=== PATIENT | female | born 1965 | race Caucasian/White ===

== ENCOUNTER 2022-09-12 12:41 | Observation (INO) | payer OTHER, SELFPAY ==
--- NOTE | ~2022-09-12 | CT_ITS ---
EXAMINATION: CT ANGIOGRAM HEAD CT ANGIOGRAM NECK CLINICAL INFORMATION: Blurred vision. COMPARISON: None available. TECHNIQUE: Initial noncontrast natural resource specialist imaging of the head and neck was performed. Noncontrast head CT was also performed. Test bolus sequences followed by intravenous administration 70 mL of Omnipaque 350. Helical imaging was performed in the axial plane from the aortic arch to the skull vertex. Delayed postcontrast imaging of the head was also performed. The data was processed at the pulmonary function technologist's workstation for generation of MIP sequences. Angled MIPs and volume rendered reformatted images were also generated at an offline 3D workstation. Stenoses are assessed in accordance with NASCET criteria unless otherwise indicated. This CT examination was performed using dose optimization techniques as appropriate, variously including the following: *Automated exposure control. *Adjustment of mA and/or kV according to patient size (this includes techniques or standardized protocols for targeted exams where dose is matched to indication/reason for exam; i.e. extremities or head). *Use of iterative reconstruction technique. DLP: 2253 mGy-cm FINDINGS: CT Head: There is no evidence of acute intracranial hemorrhage or edematous territorial infarction. There is no abnormal attenuation within the brain parenchyma. Park-white matter differentiation is preserved. The ventricles are normal in size and configuration. No evidence for obstructive hydrocephalus. No abnormal mass effect or midline shift. No extra-axial fluid collections. No pathologic intra-axial enhancement or regional oligemia. No acute soft tissue or osseous abnormalities. Mild mucosal thickening of the paranasal sinuses. The mastoid air cells and middle ear cavities are clear. No demonstrated abnormalities of the orbits. CT Neck: Mild leftward nasal septal deviation. There is a 2 cm heterogeneous lesion in the anterior aspect of the right thyroid lobe. The remaining Cervical soft tissues are within normal limits. Straightening of the normal cervical lordosis. Moderate degenerative disc disease at C5-C6 with disc/osteophyte complex formation. CT Upper Chest: Moderate underlying centrilobular emphysema. The visualized lung apices and upper mediastinum are within normal limits. Neck CTA: Aortic Arch: Normal contour and caliber with mild calcific atherosclerotic disease. Classic 3 vessel branching pattern of the aortic arch. Great Vessel Origins: No significant stenosis of the branch origins. Right Common Carotid Artery: No focal stenosis or occlusion. Cervical Right Internal Carotid Artery: Normal opacification without focal stenosis or occlusion. Left Common Carotid Artery: No focal stenosis or occlusion. Cervical Left Internal Carotid Artery: Normal opacification without focal stenosis or occlusion. Cervical Right Vertebral Artery: Co-dominant. No focal stenosis or occlusion. Cervical Left Vertebral Artery: Co-dominant. No focal stenosis or occlusion. Brain CTA: Intracranial Internal Carotid Arteries: No focal stenosis or occlusion. Right Anterior Cerebral Artery: Normal A1 segment. Normal opacification of the distal DAVIDA segments. Left Anterior Cerebral Artery: Normal A1 segment. Normal opacification of the distal DAVIDA segments. Anterior Communicating Artery: Normal. Right Middle Cerebral Artery: Normal M1 segment of the MCA without focal stenosis or occlusion. Normal arborization of the distal segments. Left Middle Cerebral Artery: Normal M1 segment of the MCA without focal stenosis or occlusion. Normal arborization of the distal segments. Right Vertebral Artery: Normal V4 segment. Normal opacification of the proximal segments of the posterior inferior cerebellar artery. Left Vertebral Artery: Normal V4 segment. The posterior inferior cerebellar artery is not well opacified; however, there is no CT evidence of acute occlusion. Basilar Artery: Normal without focal stenosis or occlusion. Normal appearance of the proximal superior cerebellar arteries. Right Posterior Cerebral Artery: Normal P1 segment. Normal opacification of the distal SUPERVISOR GLUING segments. Left Posterior Cerebral Artery: Normal P1 segment. Normal opacification of the distal SUPERVISOR GLUING segments. Normal opacification of the superior sagittal, straight, transverse, and sigmoid sinuses. CT/CT angio head neck IMPRESSION: 1. No evidence of acute intracranial hemorrhage or edematous territorial infarction. 2. CTA of the head and neck without proximal occlusion or flow-limiting stenosis. 3. There is a 2 cm heterogeneous lesion in right thyroid lobe. Recommend further characterization with thyroid ultrasound. 4. Emphysema.
--- NOTE | ~2022-09-12 | XR_ITS ---
EXAMINATION: XR CHEST CLINICAL INFORMATION: Chest pain, shortness of breath. COMPARISON: None available. TECHNIQUE: Frontal view of the chest was obtained. FINDINGS: No significant abnormality is noted involving the heart, lungs, mediastinum, bony thorax or soft tissues. XR/XR chest 1V IMPRESSION: No acute cardiopulmonary process.
--- NOTE | ~2022-09-12 | MR_ITS ---
EXAMINATION: MR BRAIN WITHOUT AND WITH CONTRAST CLINICAL INFORMATION: Vertigo, dizziness, flushing, question seizure. COMPARISON: Head CTA 09/12/2022 TECHNIQUE: Multiplanar, multisequence imaging of the brain was performed before and after the intravenous administration of 10 mL of Gadavist. FINDINGS: There is no acute infarction, mass, hemorrhage, or extra-axial collection. No abnormal or unexpected intracranial enhancement is seen. The ventricles, sulci, and basilar cisterns are normal in size and configuration. Mild nonspecific foci of T2/FLAIR hyperintensity are seen within the cerebral white matter, typical of chronic microangiopathy. The left posterior hippocampus is incompletely rotated, a normal variant. There is no abnormal signal within the hippocampi. The flow voids of the major intracranial arteries appear intact. The bones and extracranial soft tissues are within normal limits. There is a small amount of fluid within the mastoids. MR/MR head/brain wo/w con IMPRESSION: No mass lesion, acute infarction, or abnormal intracranial enhancement.
--- NOTE | 2022-09-12 12:44 | ECG_ITS ---
Test Reason : chest heaviness Blood Pressure : / mmHG Vent. Rate : 102 BPM Atrial Rate : 102 BPM P-R Int : 172 ms QRS Dur : 076 ms QT Int : 314 ms P-R-T Axes : 065 041 048 degrees QTc Int : 409 ms Sinus tachycardia Otherwise normal ECG When compared with ECG of 29-OCT-2018 00:58, No significant change was found Referred By: Generic ED Physician Electronically Signed By:JUSTIN CORONEL MD
[2022-09-12 13:07] VITALS: BP 144/63; PULSE 105; RESP 18; TEMP 36.6; O2SAT 99; BMI 38.1
--- NOTE | 2022-09-12 13:09 | ED_ITS ---
HPI - General Adult General Chief complaint: General Medical <LASHAY Sofia - Last Filed: 09/12/22 13:13> Stated complaint: CHEST PAIN BLURRED VISSION <LASHAY Sofia - Last Filed: 09/12/22 13:13> Time Seen by Provider: 09/12/22 19:11 <LASHAY Sofia - Last Filed: 09/12/22 13:13> Source: patient <LASHAY Mata - Last Filed: 09/12/22 22:07> Mode of arrival: ambulatory <LASHAY Mata - Last Filed: 09/12/22 22:07> Limitations: no limitations <LASHAY Mata - Last Filed: 09/12/22 22:07> History of Present Illness HPI narrative: 57-year-old female htn, obesity presents to the emergency department for evaluation of blurred vision, weakness, confusion on several episodes. Patient tells me she had an episode at approximately 01:00 last night, she tells me she felt weak, had bilateral blurred vision, had difficulties with word finding, she tells me that when she was on the phone with a friend friend noted that she was not making sense and her speech was altered. Also reports an episode at approximately noon today with blurred vision, weakness and feeling out of it. She reports substernal nonradiating chest pressure with associated palpitations, shortness of breath. Patient tells me she does have a history of blood clots, she states she used to be on Coumadin however she has been off of it for 2 years. Patient denies fevers, chills, nausea, vomiting, abdominal pain, headache, dizziness, weakness, changes in speech, blurred vision at this time. Patient reports initial episode lasted approximately 40 minutes and then the 2nd episode lasted approximately 20 minutes NIH stroke scale 0 on arrival. <LASHAY Mata - Last Filed: 09/12/22 22:07> Related Data Home medications: Home Medications Medication Instructions Recorded Confirmed No Known Home Meds 09/12/22 09/12/22 <LASHAY Sofia - Last Filed: 09/12/22 13:13> Allergies/adverse reactions: Allergies Allergy/AdvReac Type Severity Reaction Status Date / Time No Known Allergies Allergy Unverified 03/08/20 15:01 [No Known Allergies*] <LASHAY Sofia - Last Filed: 09/12/22 13:13> Review of Systems Review of Systems: Constitutional : No Weight loss, No Fever, No Chills, No Fatigue, No Malaise ENT/Mouth : No sore throat, No Rhinorrhea Eyes: No Eye Pain, No Swelling, No Redness Cardiovascular : No Chest Pain, No SOB, No Dyspnea on Exertion, No Orthopnea, No Edema, No Palpitations Respiratory : No Cough, No Sputum, No Wheezing Gastrointestinal : No Nausea, No Vomiting, No Diarrhea, No Constipation, No abdominal Pain, No Hematochezia, No Melena Genitourinary : No Dysuria, No Urinary Frequency, No Hematuria, Musculoskeletal : No joint pain, No Myalgias, No Joint Swelling Skin : No Skin Lesions, No rash Neuro : No Weakness, No Numbness, No Dizziness, No Headache Psych : No Anxiety/Panic, No Depression All other systems reviewed and are negative <LASHAY Mata - Last Filed: 09/12/22 22:07> Yes all other systems are reviewed and are negative <LASHAY Mata - Last Filed: 09/12/22 22:07> [facility] Past Medical History Attestation statement: The following information was validated with the patient. <LASHAY Mata - Last Filed: 09/12/22 22:07> Source: old records reviewed and nursing notes reviewed <LASHAY Mata - Last Filed: 09/12/22 22:07> Medical History: Medical History (Updated 09/12/22 @ 22:[address] MD) No pertinent past medical history <LASHAY Sofia - Last Filed: 09/12/22 13:13> Surgical History: Surgical History (Updated 09/12/22 @ 22:[address] MD) History of hysterectomy <LASHAY Sofia - Last Filed: 09/12/22 13:13> Social History Social History: Social History (Updated 09/12/22 @ 22:[address] MD) Alcohol intake: current Patient Tobacco Use Status: Current everyday Tobacco user Cigarette Packs Per Day: 1 Use of substances other than those prescribed or required for medical reasons: No Advance Directives: No Advance Directives Information Provided: No <LASHAY Sofia - Last Filed: 09/12/22 13:13> Physical Exam ED Vital Signs: Vital Signs - 24 hr 09/12/22 13:07 09/12/22 20:59 Temperature 97.9 F 98.3 F Pulse Rate 105 H 84 Respiratory Rate 18 18 Blood Pressure 144/63 H 131/47 L Pulse Oximetry 99 98 Oxygen Delivery Method Room Air Room Air BMI result Body Mass Index 38.1 <LASHAY Sofia - Last Filed: 09/12/22 13:13> Vital Signs - 24 hr 09/12/22 13:07 09/12/22 20:59 Temperature 97.9 F 98.3 F Pulse Rate 105 H 84 Respiratory Rate 18 18 Blood Pressure 144/63 H 131/47 L Pulse Oximetry 99 98 Oxygen Delivery Method Room Air Room Air BMI result Body Mass Index 38.1 vss <LASHAY Mata - Last Filed: 09/12/22 22:07> Appearance: Alert.? Oriented X3.? No acute distress.? Head: Normocephalic, atraumatic, no step-offs or deformities Eyes: Pupils equal, round and reactive to light.? Extraocular movements intact however she is noted to have horizontal nystagmus on exam. ENT: Pharynx normal.? Neck: Normal inspection.? Neck supple.? CVS: Normal heart rate and rhythm.? Pulses normal.? Respiratory: No respiratory distress.? Breath sounds normal.? Abdomen: Soft and nontender.? Skin: Skin warm and dry.? Normal skin color.? Normal skin turgor.? Extremities: No lower extremity edema.? No calf ttp. 5/5 strength to bilateral upper and lower extremities Neuro: Oriented X 3.? No motor deficit.? No sensory deficit. CN 2-12 intact . N ormal [id number], [id number], ambulating with steady tandem gait normal coordination. Normal Romberg and pronator drift. <LASHAY Mata - Last Filed: 09/12/22 22:07> Course Course Course Narrative: RME--57yo F with PMHx DVT's no longer on AC presenting to the ED c/o episodic pre syncopal episodes with associated blurry vision,chest pressure /tightness and SOB since last night. [place] had repeat episode this morning lasting about 20 minutes. Symptoms resolved present. 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 Does smoke cigarettes Mildly tachycardic to 105 EKG, labs, CXR including D-dimer ordered <LASHAY Sofia - Last Filed: 09/12/22 13:13> Reevaluation(s) Reevaluation #1: CBC within normal limits. Chemistry with no acute findings requiring intervention. Transaminases slightly elevated however appear to be around patient's baseline. Negative troponin, EKG nonischemic unlikely ACS. COVID, influenza negative. Chest x-ray unremarkable. <LASHAY Mata - Last Filed: 09/12/22 22:07> Time: 19:35 <LASHAY Mata - Last Filed: 09/12/22 22:07> Reevaluation #2: CT/XCTA pending. Did discuss this case with hospitalist will admit patient for further evaluation and treatment. <LASHAY Mata - Last Filed: 09/12/22 22:07> Time: 20:10 <LASHAY Mata - Last Filed: 09/12/22 22:07> Reevaluation #3: CTA unremarkable. Will be admitted to the hospital ? <LASHAY Mata - Last Filed: 09/12/22 22:07> Time: 22:07 <LASHAY Mata - Last Filed: 09/12/22 22:07> Medications Administered Discontinued Medications Generic Name Dose Route Start Last Admin Trade Name Freq PRN Reason Stop Dose Admin Iohexol 70 ml 09/12/22 21:36 09/12/22 21:37 Iohexol 350 Mg/Ml 100 Ml Infus..Btl IV 09/12/22 21:37 70 ml ONCE ONE Administration <LASHAY Sofia - Last Filed: 09/12/22 13:13> Medications Administered Discontinued Medications Generic Name Dose Route Start Last Admin Trade Name Freq PRN Reason Stop Dose Admin Iohexol 70 ml 09/12/22 21:36 09/12/22 21:37 Iohexol 350 Mg/Ml 100 Ml Infus..Btl IV 09/12/22 21:37 70 ml ONCE ONE Administration <LASHAY Mata - Last Filed: 09/12/22 22:07> Medical Decision Making Medical Decision Making [facility] Narrative: 1899 57-year-old female presents for evaluation of TIA like symptoms over the past 24 hours has had 2 episodes. Physical exam with horizontal nystagmus NIH stroke scale 0. Neuro nonfocal. Cerebellar intact. Likely TIA. Unlikely stroke, posterior stroke. Will rule out ACS, PE. Plan labs, imaging very <LASHYA Mata - Last Filed: 09/12/22 22:07> Differential Diagnosis Differential Diagnoses: The differential diagnosis associated with the presentation includes <LASHAY Mata - Last Filed: 09/12/22 22:07> Likely TIA. Unlikely stroke, posterior stroke. Will rule out ACS, PE. <LASHAY Mata - Last Filed: 09/12/22 22:07> Admission/Observation Consideration of admission/observation: Escalation of care including admission/observation considered <LASHAY Mata - Last Filed: 09/12/22 22:07> Consult Healthcare Provider Management of the patient was discussed with: Hospitalist and Associate Manager [employer] (Dr. Perry ) <LASHAY Mata - Last Filed: 09/12/22 22:07> Lab Data [facility] Lab Attestation statement: I reviewed the patient's lab results. <LASHAY Mata - Last Filed: 09/12/22 22:07> Result Diagrams: 09/12/22 13:27 09/12/22 13:26 <LASHAY Sofia - Last Filed: 09/12/22 13:13> Labs: Lab Results 09/12/22 09/12/22 09/12/22 Range/Units 13:26 13:26 13:26 WBC (4.8-10.8) X10*3/uL RBC (4.20-5.50) X10*6/uL Hgb (12.0-16.0) g/dl Hct (37.0-47.0) % MCV (80.0-98.0) fL MCH (27.0-33.0) pg MCHC (31.0-35.0) g/dl RDW (11.0-16.0) % Plt Count (160-400) X10*3/uL MPV (9.4-12.3) fL Immature Gran % (Auto) (0.0-0.4) % Neut % (Auto) (45-73) % Lymph % (Auto) (20-40) % Carson % (Auto) (2-11) % Eos % (Auto) (0-4) % Baso % (Auto) (0-2) % Lymph # (Auto) (1.2-4.9) X10*3/uL Carson # (Auto) (0.1-1.2) X10*3/uL Eos # (Auto) (0.0-0.4) X10*3/uL Baso # (Auto) (0.0-0.2) X10*3/uL Abs Immat Gran (auto) (0.00-0.03) X10*3/uL Absolute Neuts (auto) (2.0-8.3) x10*3/uL Absolute Nucleated RBC (0.0-0.012) X10*3/uL Nucleated RBC % (auto) (0.0-0.2) /100WBC PT 11.2 (10.0-13.1) SEC INR 1.0 (0.9-1.1) D-Dimer High Sensitivty < 150 NG/ML Sodium 142 (135-145) mmol/L Potassium 4.0 (3.3-5.1) mmol/L Chloride 109 H (96-108) mmol/L Carbon Dioxide 25 (22-29) mmol/L Anion Gap 12 (12-20) BUN 10 (9-16) mg/dL Creatinine 0.78 (0.5-1.4) mg/dL Estim Creat Clear Calc 106.6 Estimated GFR > 60 Random Glucose 118 H (60-115) mg/dL Calcium 9.4 (8.4-10.2) mg/dL Magnesium 1.9 (1.6-2.6) mg/dL Total Bilirubin 0.4 (0.0-1.0) mg/dL Direct Bilirubin < 0.2 (0.0-0.5) mg/dL AST 21 (5-31) U/L ALT 34 H (0-31) U/L Alkaline Phosphatase 123 H (39-117) U/L Troponin I High Sens < 3.5 (<3.5-17.0) ng/L B-Natriuretic Peptide (<100) pg/mL Total Protein 6.8 (6.5-8.0) g/dL Albumin 4.0 (3.5-5.0) g/dL COVID-19 (MURRAY) (Negative) COVID-19 Clin Com Influenza Type A (EVELIO) (Negative) Influenza Type B (EVELIO) (Negative) Influenza A & B Note 09/12/22 09/12/22 09/12/22 Range/Units 13:26 13:26 13:26 WBC (4.8-10.8) X10*3/uL RBC (4.20-5.50) X10*6/uL Hgb (12.0-16.0) g/dl Hct (37.0-47.0) % MCV (80.0-98.0) fL MCH (27.0-33.0) pg MCHC (31.0-35.0) g/dl RDW (11.0-16.0) % Plt Count (160-400) X10*3/uL MPV (9.4-12.3) fL Immature Gran % (Auto) (0.0-0.4) % Neut % (Auto) (45-73) % Lymph % (Auto) (20-40) % Carson % (Auto) (2-11) % Eos % (Auto) (0-4) % Baso % (Auto) (0-2) % Lymph # (Auto) (1.2-4.9) X10*3/uL Carson # (Auto) (0.1-1.2) X10*3/uL Eos # (Auto) (0.0-0.4) X10*3/uL Baso # (Auto) (0.0-0.2) X10*3/uL Abs Immat Gran (auto) (0.00-0.03) X10*3/uL Absolute Neuts (auto) (2.0-8.3) x10*3/uL Absolute Nucleated RBC (0.0-0.012) X10*3/uL Nucleated RBC % (auto) (0.0-0.2) /100WBC PT (10.0-13.1) SEC INR (0.9-1.1) D-Dimer High Sensitivty NG/ML Sodium (135-145) mmol/L Potassium (3.3-5.1) mmol/L Chloride (96-108) mmol/L Carbon Dioxide (22-29) mmol/L Anion Gap (12-20) BUN (9-16) mg/dL Creatinine (0.5-1.4) mg/dL Estim Creat Clear Calc Estimated GFR Random Glucose (60-115) mg/dL Calcium (8.4-10.2) mg/dL Magnesium (1.6-2.6) mg/dL Total Bilirubin (0.0-1.0) mg/dL Direct Bilirubin (0.0-0.5) mg/dL AST (5-31) U/L ALT (0-31) U/L Alkaline Phosphatase (39-117) U/L Troponin I High Sens (<3.5-17.0) ng/L B-Natriuretic Peptide 12 (<100) pg/mL Total Protein (6.5-8.0) g/dL Albumin (3.5-5.0) g/dL COVID-19 (MURRAY) Negative (Negative) COVID-19 Clin Com See Note Influenza Type A (EVELIO) Negative (Negative) Influenza Type B (EVELIO) Negative (Negative) Influenza A & B Note See Note 09/12/22 Range/Units 13:27 WBC 7.6 (4.8-10.8) X10*3/uL RBC 5.12 (4.20-5.50) X10*6/uL Hgb 15.4 (12.0-16.0) g/dl Hct 46.2 (37.0-47.0) % MCV 90.2 (80.0-98.0) fL MCH 30.1 (27.0-33.0) pg MCHC 33.3 (31.0-35.0) g/dl RDW 13.0 (11.0-16.0) % Plt Count 272 (160-400) X10*3/uL MPV 9.1 L (9.4-12.3) fL Immature Gran % (Auto) 0.1 (0.0-0.4) % Neut % (Auto) 58.8 (45-73) % Lymph % (Auto) 31.8 (20-40) % Carson % (Auto) 6.8 (2-11) % Eos % (Auto) 1.8 (0-4) % Baso % (Auto) 0.7 (0-2) % Lymph # (Auto) 2.4 (1.2-4.9) X10*3/uL Carson # (Auto) 0.5 (0.1-1.2) X10*3/uL Eos # (Auto) 0.1 (0.0-0.4) X10*3/uL Baso # (Auto) 0.1 (0.0-0.2) X10*3/uL Abs Immat Gran (auto) 0.01 (0.00-0.03) X10*3/uL Absolute Neuts (auto) 4.5 (2.0-8.3) x10*3/uL Absolute Nucleated RBC 0.000 (0.0-0.012) X10*3/uL Nucleated RBC % (auto) 0.0 (0.0-0.2) /100WBC PT (10.0-13.1) SEC INR (0.9-1.1) D-Dimer High Sensitivty NG/ML Sodium (135-145) mmol/L Potassium (3.3-5.1) mmol/L Chloride (96-108) mmol/L Carbon Dioxide (22-29) mmol/L Anion Gap (12-20) BUN (9-16) mg/dL Creatinine (0.5-1.4) mg/dL Estim Creat Clear Calc Estimated GFR Random Glucose (60-115) mg/dL Calcium (8.4-10.2) mg/dL Magnesium (1.6-2.6) mg/dL Total Bilirubin (0.0-1.0) mg/dL Direct Bilirubin (0.0-0.5) mg/dL AST (5-31) U/L ALT (0-31) U/L Alkaline Phosphatase (39-117) U/L Troponin I High Sens (<3.5-17.0) ng/L B-Natriuretic Peptide (<100) pg/mL Total Protein (6.5-8.0) g/dL Albumin (3.5-5.0) g/dL COVID-19 ([facility]RAY) (Negative) COVID-19 Clin Com Influenza Type A (EVELIO) (Negative) Influenza Type B (EVELIO) (Negative) Influenza A & B Note <LASHAY Sofia - Last Filed: 09/12/22 13:13> Lab Results 09/12/22 09/12/22 09/12/22 Range/Units 13:26 13:26 13:26 WBC (4.8-10.8) X10*3/uL RBC (4.20-5.50) X10*6/uL Hgb (12.0-16.0) g/dl Hct (37.0-47.0) % MCV (80.0-98.0) fL MCH (27.0-33.0) pg MCHC (31.0-35.0) g/dl RDW (11.0-16.0) % Plt Count (160-400) X10*3/uL MPV (9.4-12.3) fL Immature Gran % (Auto) (0.0-0.4) % Neut % (Auto) (45-73) % Lymph % (Auto) (20-40) % Carson % (Auto) (2-11) % Eos % (Auto) (0-4) % Baso % (Auto) (0-2) % Lymph # (Auto) (1.2-4.9) X10*3/uL Carson # (Auto) (0.1-1.2) X10*3/uL Eos # (Auto) (0.0-0.4) X10*3/uL Baso # (Auto) (0.0-0.2) X10*3/uL Abs Immat Gran (auto) (0.00-0.03) X10*3/uL Absolute Neuts (auto) (2.0-8.3) x10*3/uL Absolute Nucleated RBC (0.0-0.012) X10*3/uL Nucleated RBC % (auto) (0.0-0.2) /100WBC PT 11.2 (10.0-13.1) SEC INR 1.0 (0.9-1.1) D-Dimer High Sensitivty < 150 NG/ML Sodium 142 (135-145) mmol/L Potassium 4.0 (3.3-5.1) mmol/L Chloride 109 H (96-108) mmol/L Carbon Dioxide 25 (22-29) mmol/L Anion Gap 12 (12-20) BUN 10 (9-16) mg/dL Creatinine 0.78 (0.5-1.4) mg/dL Estim Creat Clear Calc 106.6 Estimated GFR > 60 Random Glucose 118 H (60-115) mg/dL Calcium 9.4 (8.4-10.2) mg/dL Magnesium 1.9 (1.6-2.6) mg/dL Total Bilirubin 0.4 (0.0-1.0) mg/dL Direct Bilirubin < 0.2 (0.0-0.5) mg/dL AST 21 (5-31) U/L ALT 34 H (0-31) U/L Alkaline Phosphatase 123 H (39-117) U/L Troponin I High Sens < 3.5 (<3.5-17.0) ng/L B-Natriuretic Peptide (<100) pg/mL Total Protein 6.8 (6.5-8.0) g/dL Albumin 4.0 (3.5-5.0) g/dL COVID-19 ([facility]URRAY) (Negative) COVID-19 Clin Com Influenza Type A (EVELIO) (Negative) Influenza Type B (EVELIO) (Negative) Influenza A & B Note 09/12/22 09/12/22 09/12/22 Range/Units 13:26 13:26 13:26 WBC (4.8-10.8) X10*3/uL RBC (4.20-5.50) X10*6/uL Hgb (12.0-16.0) g/dl Hct (37.0-47.0) % MCV (80.0-98.0) fL MCH (27.0-33.0) pg MCHC (31.0-35.0) g/dl RDW (11.0-16.0) % Plt Count (160-400) X10*3/uL MPV (9.4-12.3) fL Immature Gran % (Auto) (0.0-0.4) % Neut % (Auto) (45-73) % Lymph % (Auto) (20-40) % Carson % (Auto) (2-11) % Eos % (Auto) (0-4) % Baso % (Auto) (0-2) % Lymph # (Auto) (1.2-4.9) X10*3/uL Carson # (Auto) (0.1-1.2) X10*3/uL Eos # (Auto) (0.0-0.4) X10*3/uL Baso # (Auto) (0.0-0.2) X10*3/uL Abs Immat Gran (auto) (0.00-0.03) X10*3/uL Absolute Neuts (auto) (2.0-8.3) x10*3/uL Absolute Nucleated RBC (0.0-0.012) X10*3/uL Nucleated RBC % (auto) (0.0-0.2) /100WBC PT (10.0-13.1) SEC INR (0.9-1.1) D-Dimer High Sensitivty NG/ML Sodium (135-145) mmol/L Potassium (3.3-5.1) mmol/L Chloride (96-108) mmol/L Carbon Dioxide (22-29) mmol/L Anion Gap (12-20) BUN (9-16) mg/dL Creatinine (0.5-1.4) mg/dL Estim Creat Clear Calc Estimated GFR Random Glucose (60-115) mg/dL Calcium (8.4-10.2) mg/dL Magnesium (1.6-2.6) mg/dL Total Bilirubin (0.0-1.0) mg/dL Direct Bilirubin (0.0-0.5) mg/dL AST (5-31) U/L ALT (0-31) U/L Alkaline Phosphatase (39-117) U/L Troponin I High Sens (<3.5-17.0) ng/L B-Natriuretic Peptide 12 (<100) pg/mL Total Protein (6.5-8.0) g/dL Albumin (3.5-5.0) g/dL COVID-19 ([facility]) Negative (Negative) COVID-19 Clin Com See Note Influenza Type A (EVELIO) Negative (Negative) Influenza Type B (EVELIO) Negative (Negative) Influenza A & B Note See Note 09/12/22 Range/Units 13:27 WBC 7.6 (4.8-10.8) X10*3/uL RBC 5.12 (4.20-5.50) X10*6/uL Hgb 15.4 (12.0-16.0) g/dl Hct 46.2 (37.0-47.0) % MCV 90.2 (80.0-98.0) fL MCH 30.1 (27.0-33.0) pg MCHC 33.3 (31.0-35.0) g/dl RDW 13.0 (11.0-16.0) % Plt Count 272 (160-400) X10*3/uL MPV 9.1 L (9.4-12.3) fL Immature Gran % (Auto) 0.1 (0.0-0.4) % Neut % (Auto) 58.8 (45-73) % Lymph % (Auto) 31.8 (20-40) % Carson % (Auto) 6.8 (2-11) % Eos % (Auto) 1.8 (0-4) % Baso % (Auto) 0.7 (0-2) % Lymph # (Auto) 2.4 (1.2-4.9) X10*3/uL Carson # (Auto) 0.5 (0.1-1.2) X10*3/uL Eos # (Auto) 0.1 (0.0-0.4) X10*3/uL Baso # (Auto) 0.1 (0.0-0.2) X10*3/uL Abs Immat Gran (auto) 0.01 (0.00-0.03) X10*3/uL Absolute Neuts (auto) 4.5 (2.0-8.3) x10*3/uL Absolute Nucleated RBC 0.000 (0.0-0.012) X10*3/uL Nucleated RBC % (auto) 0.0 (0.0-0.2) /100WBC PT (10.0-13.1) SEC INR (0.9-1.1) D-Dimer High Sensitivty NG/ML Sodium (135-145) mmol/L Potassium (3.3-5.1) mmol/L Chloride (96-108) mmol/L Carbon Dioxide (22-29) mmol/L Anion Gap (12-20) BUN (9-16) mg/dL Creatinine (0.5-1.4) mg/dL Estim Creat Clear Calc Estimated GFR Random Glucose (60-115) mg/dL Calcium (8.4-10.2) mg/dL Magnesium (1.6-2.6) mg/dL Total Bilirubin (0.0-1.0) mg/dL Direct Bilirubin (0.0-0.5) mg/dL AST (5-31) U/L ALT (0-31) U/L Alkaline Phosphatase (39-117) U/L Troponin I High Sens (<3.5-17.0) ng/L B-Natriuretic Peptide (<100) pg/mL Total Protein (6.5-8.0) g/dL Albumin (3.5-5.0) g/dL COVID-19 ([facility]) (Negative) COVID-19 Clin Com Influenza Type A (EVELIO) (Negative) Influenza Type B (EVELIO) (Negative) Influenza A & B Note <LASHAY Mata - Last Filed: 09/12/22 22:07> Independent Interpretation I performed an independent interpretation of an: EKG (Ventricular rate of 101, OK normal, QRS normal, QT/QTC normal. EKG with sinus tachycardia no ST elevations or inversions concerning for ischemia.) and CT Scan <LASHAY Mata - Last Filed: 09/12/22 22:07> Radiology Impression Discussion of test interpretation with radiology: I have reviewed the radiologist's reading. <LASHAY Mata Last Filed: 09/12/22 22:07> Core Measures AMI core measures followed: Yes <LASHAY Mata Last Filed: 09/12/22 22:07> Measure exclusions: not indicated <LASHAY Mata - Last Filed: 09/12/22 22:07> Critical Care Time Critical Care Time Critical Care Time: No <LASHAY Mata - Last Filed: 09/12/22 22:07> Discharge Plan Discharge Clinical Impression: TIA (transient ischemic attack), Nystagmus <LASHAY Sofia - Last Filed: 09/12/22 13:13> Patient Disposition: Admitted As Inpatient <LASHAY Sofia - Last Filed: 09/12/22 13:13>
[2022-09-12 13:31] LABS: MANUAL DIFF FLAG NO
[2022-09-12 13:33] LABS: Basophils Absolute Auto 0.1 X10*3/uL (0.0-0.2); Basophils Percent Auto 0.7 % (0-2); Eosinophils Absolute Auto 0.1 X10*3/uL (0.0-0.4); Eosinophils Percent Auto 1.8 % (0-4); Hematocrit 46.2 % (37.0-47.0); Hemoglobin 15.4 g/dl (12.0-16.0); Imm Gran Abs Auto 0.01 X10*3/uL (0.00-0.03); Imm Gran Pct Auto 0.1 % (0.0-0.4); Lymphocytes Absolute Auto 2.4 X10*3/uL (1.2-4.9); Lymphocytes Percent Auto 31.8 % (20-40); Mean Corpuscular HGB Conc 33.3 g/dl (31.0-35.0); Mean Corpuscular Hemoglobin 30.1 pg (27.0-33.0); Mean Corpuscular Volume 90.2 fL (80.0-98.0); Mean Platelet Volume 9.1 fL (9.4-12.3); Monocytes Absolute Auto 0.5 X10*3/uL (0.1-1.2); Monocytes Percent Auto 6.8 % (2-11); Neutrophils Absolute Auto 4.5 x10*3/uL (2.0-8.3); Neutrophils Percent Auto 58.8 % (45-73); Platelet Count 272 X10*3/uL (160-400); Red Blood Count 5.12 X10*6/uL (4.20-5.50); White Blood Count 7.6 X10*3/uL (4.8-10.8)
[2022-09-12 13:41] LABS: Prothrombin Time 11.2 SEC (10.0-13.1)
[2022-09-12 13:47] LABS: COVID-19 Test Negative (Negative); IDNOW Serial# 9DB6401D; IDNOW Serial# BCCEAD1C; Influenza A Negative (Negative); Influenza B2 Negative (Negative)
[2022-09-12 13:52] LABS: D Dimer High Sensitivity < 150 NG/ML
[2022-09-12 13:58] LABS: B Type Natriuretic Peptide 12 pg/mL (<100)
[2022-09-12 14:00] LABS: Alanine Aminotransferase 34 U/L (0-31); Alkaline Phosphatase 123 U/L (39-117); Anion Gap 12 (12-20); Aspartate Amino Transferase 21 U/L (5-31); Bilirubin Direct < 0.2 mg/dL (0.0-0.5); Bilirubin Total 0.4 mg/dL (0.0-1.0); Blood Urea Nitrogen 10 mg/dL (9-16); Calcium 9.4 mg/dL (8.4-10.2); Carbon Dioxide 25 mmol/L (22-29); Chloride 109 mmol/L (96-108); Creatinine Clr Calc Pharmacy 106.6; Estimated Glomerular Filt Rate > 60; Glucose Random 118 mg/dL (60-115); Magnesium 1.9 mg/dL (1.6-2.6); Sodium 142 mmol/L (135-145); Total Protein 6.8 g/dL (6.5-8.0); Troponin-I High Sensitivity < 3.5 ng/L (<3.5-17.0)
--- NOTE | 2022-09-12 20:43 | PHA.MEDREC ---
med rec complete, not on any medications Pharmacy Consult ? Medication Reconciliation Pharmacy has completed the medication reconciliation.
[2022-09-12 20:59] VITALS: BP 131/47; PULSE 84; RESP 18; TEMP 36.8; O2SAT 98
--- NOTE | 2022-09-12 21:00 | PC.NURSE ---
late entry- family at bedside. this rn placed 20g IV in L AC.pt tolerated well. pt awaiting CT scan at this time
--- NOTE | 2022-09-12 21:16 | PM.IMHP ---
History of Present Illness Date of Service: 09/12/22 Chief Complaint: dizziness 57-year-old female with no significant past medical history presents to the hospital with complaints of 2 episodes of dizziness, blurred vision. Patient states that she was out at the casino last night when all of a sudden she developed significant dizziness, blurred vision that lasted about 40 minutes, she also had few minutes of palpitations/fluttering and feeling discomfort in her chest, lasted 40 minutes, and resolved spontaneously,states that this morning when she called her daughter her daughter said that her speech was incomprehensible. she then developed similar episode this afternoon the lasted about 20 minutes. Patient was concerned and therefore came to the ED. She denies having any chest pain, reports no similar episode in the past, denies any nausea or vomiting, no numbness or tingling in the upper lower extremities, She denies having any diarrhea constipation, no urinary symptoms and no lower extremity edema. On arrival to the ED patient has a heart rate of 105, otherwise unremarkable Labs reviewed are unremarkable CT head and CTA head and neck pending Review of Systems Review of Systems: Yes all other systems are reviewed and are negative [facility] Medical History (Updated 09/12/22 @ 22:[address] MD) No pertinent past medical history Surgical History (Updated 09/12/22 @ 22:[address] MD) History of hysterectomy Social History (Updated 09/12/22 @ 22:[address] MD) Alcohol intake: current Patient Tobacco Use Status: Current everyday Tobacco user Cigarette Packs Per Day: 1 Meds Allergies Allergy/AdvReac Type Severity Reaction Status Date / Time No Known Allergies Allergy Unverified 03/08/20 15:01 [No Known Allergies*] Active Medications: Current Medications Pharmacy Consult (Consult Rx Perform Med Rec) 1 each MISCELLANE ONCE PRN PRN Reason: Consult order Home Medications Medication Instructions Recorded Confirmed Last Taken Type No Known Home Meds 09/12/22 09/12/22 Unknown History Physical Exam Vital Signs and Narrative: Vital Signs: Last Vital Signs Temp 98.3 F 09/12/22 20:59 Pulse 84 09/12/22 20:59 Resp 18 09/12/22 20:59 BP 131/47 L 09/12/22 20:59 Pulse Ox 98 09/12/22 20:59 O2 Del Method Room Air 09/12/22 20:59 BMI result Body Mass Index 38.1 Const: General: cooperative and no acute distress Orientation/consciousness: patient oriented x3 Eyes: General: appearance normal, both eyes and all related structures Resp: Effort & Inspection: normal respiratory effort Auscultation: clear to auscultation bilaterally Cardio: Rate: regular rate Rhythm: regular rhythm GI: Palpation (GI): Soft to palpation Auscultation: normal bowel sounds Skin: General skin exam: no rashes or lesions noted Neuro: Other: Nerve exam unremarkable, no focal deficits, cranial nerves 2-12 intact, strength 5/5 in all extremities General: patient oriented x3 Cognition (Neuro): normal cognition Extrem: General: Yes normal to inspection and Yes no pedal edema Results Labs 09/12/22 13:27 09/12/22 13:26 Labs: Laboratory Results - last 24 hr 09/12/22 09/12/22 09/12/22 13:26 13:26 13:26 MCV MCH MCHC RDW Plt Count MPV Immature Gran % (Auto) Neut % (Auto) Lymph % (Auto) Hubbard % (Auto) Eos % (Auto) Baso % (Auto) Lymph # (Auto) Hubbard # (Auto) Eos # (Auto) Baso # (Auto) Abs Immat Gran (auto) Absolute Neuts (auto) Absolute Nucleated RBC Nucleated RBC % (auto) PT 11.2 INR 1.0 D-Dimer High Sensitivty < 150 Anion Gap 12 Estim Creat Clear Calc 106.6 Estimated GFR > 60 Random Glucose 118 H Calcium 9.4 Magnesium 1.9 Total Bilirubin 0.4 Direct Bilirubin < 0.2 AST 21 ALT 34 H Alkaline Phosphatase 123 H Troponin I High Sens < 3.5 B-Natriuretic Peptide Total Protein 6.8 Albumin 4.0 COVID-19 ([facility]) COVID-19 Clin Com Influenza Type A (EVELIO) Influenza Type B (EVELIO) Influenza A & B Note 09/12/22 09/12/22 09/12/22 13:26 13:26 13:26 MCV MCH MCHC RDW Plt Count MPV Immature Gran % (Auto) Neut % (Auto) Lymph % (Auto) Hubbard % (Auto) Eos % (Auto) Baso % (Auto) Lymph # (Auto) Hubbard # (Auto) Eos # (Auto) Baso # (Auto) Abs Immat Gran (auto) Absolute Neuts (auto) Absolute Nucleated RBC Nucleated RBC % (auto) PT INR D-Dimer High Sensitivty Anion Gap Estim Creat Clear Calc Estimated GFR Random Glucose Calcium Magnesium Total Bilirubin Direct Bilirubin AST ALT Alkaline Phosphatase Troponin I High Sens B-Natriuretic Peptide 12 Total Protein Albumin COVID-19 ([facility]) Negative COVID-19 Clin Com See Note Influenza Type A (EVELIO) Negative Influenza Type B (EVELIO) Negative Influenza A & B Note See Note 09/12/22 13:27 MCV 90.2 MCH 30.1 MCHC 33.3 RDW 13.0 Plt Count 272 MPV 9.1 L Immature Gran % (Auto) 0.1 Neut % (Auto) 58.8 Lymph % (Auto) 31.8 Hubbard % (Auto) 6.8 Eos % (Auto) 1.8 Baso % (Auto) 0.7 Lymph # (Auto) 2.4 Hubbard # (Auto) 0.5 Eos # (Auto) 0.1 Baso # (Auto) 0.1 Abs Immat Gran (auto) 0.01 Absolute Neuts (auto) 4.5 Absolute Nucleated RBC 0.000 Nucleated RBC % (auto) 0.0 PT INR D-Dimer High Sensitivty Anion Gap Estim Creat Clear Calc Estimated GFR Random Glucose Calcium Magnesium Total Bilirubin Direct Bilirubin AST ALT Alkaline Phosphatase Troponin I High Sens B-Natriuretic Peptide Total Protein Albumin COVID-19 ([facility]) COVID-19 Clin Com Influenza Type A (EVELIO) Influenza Type B (EVELIO) Influenza A & B Note Imaging Radiologist's Impressions: Impressions Chest X-Ray 09/12/22 14:20 IMPRESSION: No acute cardiopulmonary process. Assessment and Plan (1) TIA (transient ischemic attack): Status: Acute (2) Dizziness: Status: Acute Plan 57-year-old female with no significant past medical history presents to the hospital with complaints of dizziness and blurred vision # dizziness/blurred vision - TIA versus arrhythmia - patient is stating that she has symptoms of palpitations in her chest prior to feeling dizzy and blurry vision - will place on telemetry - will obtain MRI, head and neck CT angiogram pending - lipid battery - admit to telemetry DVT prophylaxis: Early ambulation Time Spent With Patient Time: Total time managing care of this patient today ____ minutes. Quality Stroke Does the patient have a stroke diagnosis?: No VTE Prior VTE?: No VTE Risk Level:: Medical - low VTE Device Contraindication: Treatment Not Indicated VTE Drug Contraindication: Treatment Not Indicated
[2022-09-12] MEDS: iohexoL 350 MG/ML 100 ML INFUS..BTL 70 ML IV (21:37)
[2022-09-12 23:10] LABS: Cholesterol 188 mg/dL; HDL Cholesterol 37 mg/dL; LDL Cholesterol Calculated 129 mg/dl; Triglycerides 114 mg/dL
[2022-09-13] VITALS (8 sets, daily range): BP systolic 112–131; BP diastolic 55–67; PULSE 76–96; RESP 16–18; TEMP 36.1–36.7; O2SAT 94–98; BMI 38.6
--- NOTE | 2022-09-13 01:39 | PC.NURSE ---
pt daughter at bedside at this time. pt tolerating po intake well. iv remains in place. pt provided with warm blankets at this time
[2022-09-13] MEDS: 0.9 % Sodium Chloride Flush 3 ML SYRINGE IVFLUSH ×2 (02:17→10:04)
[2022-09-13 08:25] LABS: Alanine Aminotransferase 26 U/L (0-31); Albumin Level 3.4 g/dL (3.5-5.0); Alkaline Phosphatase 102 U/L (39-117); Anion Gap 9 (12-20); Aspartate Amino Transferase 17 U/L (5-31); Bilirubin Total 0.3 mg/dL (0.0-1.0); Blood Urea Nitrogen 11 mg/dL (9-16); Calcium 8.9 mg/dL (8.4-10.2); Carbon Dioxide 27 mmol/L (22-29); Chloride 109 mmol/L (96-108); Creatinine Clr Calc Pharmacy 126.8; Estimated Glomerular Filt Rate > 60; Glucose Random 98 mg/dL (60-115); Potassium 4.3 mmol/L (3.3-5.1); Sodium 141 mmol/L (135-145); Total Protein 5.7 g/dL (6.5-8.0)
[2022-09-13 08:41] LABS: TSH reflex Free T4 0.74 uIU/mL (0.32-4.0)
--- NOTE | 2022-09-13 08:59 | MHC.CM.PN ---
CM met with Patient at bedside and addressed MAYNARD with her, providing her with the original and placing a copy on the chart. Patient lives in house with her 3 adult children and she is functionally independent and working. Home/self care is the goal and CM has initiated and will follow for dc planning. Patient has received covid vax x4 and the PCP is Dr. Valdovinos.
[2022-09-13 10:10] LABS: Estimated Average Glucose 111 mg/dL; Hemoglobin A1c % 5.5 %
--- NOTE | 2022-09-13 10:53 | PM.NEUROCN ---
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 to caffeine and gambling. She denied any alcohol use or drug abuse. She was in a casino working on a machine the other day when something suddenly happened to her. She said that she became extremely dizzy had some heart racing and her vision got blurred. She was able to hold herself and walked out but was not well. At 1 point she talk to her family and was apparently not making sense. Family went and picked her up. She did not seek any medical attention at that point but next day went to work and apparently had similar episode again with no obvious trigger. This episode was not as severe as the 1. Both episode lasted for 20-30 minutes. She denied any headache. Review of Systems Review of Systems: No recent cold or flu-like illness or exposure to any new chemical or medicine. [facility] Past Medical History Medical History (Updated 09/13/22 @ 10:56 by Nisreen Zuniga MD) No pertinent past medical history Surgical History Surgical History History of hysterectomy Social History Social History (Updated 09/12/22 @ 22:[address] MD) Alcohol intake: current Alcohol intake frequency: holidays/special occasions only Patient Tobacco Use Status: Current everyday Tobacco user Tobacco use type: Cigarette Cigarette Packs Per Day: 1 Cigarettes Per Day: 20.0 Smoked in Last 30 Days: Yes Patient Interested in Nicotine Replacement: No Use of substances other than those prescribed or required for medical reasons: No Advance Directives: No Advance Directives Information Provided: No Patient : No service: No Current occupational status: employed Meds Allergies Allergy/AdvReac Type Severity Reaction Status Date / Time No Known Allergies Allergy Unverified 03/08/20 15:01 [No Known Allergies*] Active Medications: Current Medications Acetaminophen (Acetaminophen 325 Mg Tablet) 650 mg PO Q6H PRN PRN Reason: Pain, Mild (Pain Scale 1-3) Docusate Sodium (Docusate Sodium 100 Mg Capsule) 100 mg PO DAILY PRN PRN Reason: Constipation Ondansetron HCl (Ondansetron Hcl 4 Mg/2 Ml Vial) 4 mg IVPUSH Q8H PRN PRN Reason: Nausea and Vomiting Pharmacy Consult (Consult Rx Perform Med Rec) 1 each MISCELLANE ONCE PRN PRN Reason: Consult order Sodium Chloride (0.9 % Sodium Chloride Flush 3 Ml Syringe) [address] [facility] Last Admin: 09/13/22 10:04 Dose: 3 ml Home Medications Medication Instructions Recorded Confirmed Last Taken Type No Known Home Meds 09/12/22 09/12/22 Unknown History Physical Exam Vital Signs: Vital Signs: Last Vital Signs Temp 97.6 F 09/13/22 08:00 Pulse 85 09/13/22 10:05 Resp 18 09/13/22 08:00 BP 123/67 09/13/22 10:05 Pulse Ox 94 09/13/22 08:00 O2 Del Method Room Air 09/13/22 08:00 BMI result Body Mass Index 38.6 Neuro: Other: She is alert and awake with normal spontaneity of speech fluency comprehension and anxious affect. Face is symmetrical. Visual dixon are full. There is no pronator drift. Deep tendon reflexes are trace with flexor plantars. Results Labs 09/12/22 13:27 09/13/22 07:03 Labs: Short CBC 09/12/22 Range/Units 13:27 WBC 7.6 (4.8-10.8) X10*3/uL Hgb 15.4 (12.0-16.0) g/dl Hct 46.2 (37.0-47.0) % Plt Count 272 (160-400) X10*3/uL BMP 09/12/22 09/13/22 13:26 07:03 Sodium 142 141 Potassium 4.0 4.3 Chloride 109 H 109 H Carbon Dioxide 25 27 BUN 10 11 Creatinine 0.78 0.66 Calcium 9.4 8.9 Liver Function 09/12/22 09/13/22 Range/Units 13:26 07:03 Total Bilirubin 0.4 0.3 (0.0-1.0) mg/dL Direct Bilirubin < 0.2 (0.0-0.5) mg/dL AST 21 17 (5-31) U/L ALT 34 H 26 (0-31) U/L Alkaline Phosphatase 123 H 102 (39-117) U/L Albumin 4.0 3.4 L (3.5-5.0) g/dL Noncontrast head CT and CTA did not reveal any significant abnormality. Assessment and Plan (1) Seizure disorder: Status: Acute 57 years old woman who is overall presentation suggested new onset of seizure disorder, dyscognitive type. Differential diagnosis would also include cardiac arrhythmia. While she is being looked at for cardiac reasons, I recommend an MRI of brain with and without contrast and an electroencephalogram. These tests can be done here or could be arranged as an outpatient. She is advised to be careful and not drive at this time to avoid any accidents. She is also strongly advised to find a primary care physician and follow through with that. Thyroid lesion needed follow-up to. Time Spent With Patient Time: Total time managing care of this patient today ____ minutes. Procedures Date of Service Date of Service: 09/13/22
--- NOTE | 2022-09-13 15:00 | PM.DS ---
DS: Providers Provider Date of Service: 09/13/22 Date of admission: 09/12/22 21:15 Date of discharge: 09/13/22 Primary care physician: Mike Valdovinos MD Consults: 09/13/22 07:38 Consult to Neurology Routine Consulting Provider: [facility] Reason for consultation: ?TIA. nystagmus/dizzy DS: Diagnosis Discharge Diagnosis (1) Dizziness: Status: Acute DS: Summary Hospital Course Hospital Course: from admission H+P by hospitalist [facility] MD, 09/12/22: 57-year-old female with no significant past medical history presents to the hospital with complaints of 2 episodes of dizziness, blurred vision.? Patient states that she [place] the [place] last night when all of a sudden she developed significant dizziness, blurred vision that lasted about 40 minutes, she also had few minutes of palpitations/fluttering and feeling discomfort in her chest, lasted 40 minutes, and resolved spontaneously,states that this morning when she called her daughter her daughter said that her speech was incomprehensible. she then developed similar episode this afternoon the lasted about 20 minutes.? Patient was concerned and therefore came to the ED.? She denies having any chest pain, reports no similar episode in the past, denies any nausea or vomiting, no numbness or tingling in the upper lower extremities, ? She denies having any diarrhea constipation, no urinary symptoms and no lower extremity edema. On arrival to the ED patient has a heart rate of 105, otherwise unremarkable Labs reviewed are unremarkable CT head and CTA head and neck pending She was admitted to the [facility] on observation. She had 1 brief episode of palpitations with dizziness and facial flushing that resolved within a few minutes. No arrhythmias were noted. MRI was completely normal. Thyroid function testing normal. Orthostatic vital signs normal. Neurology was consulted. EEG as outpatient was advised and she will follow-up with Neurology as an outpatient. She was counseled not to drive in the meanwhile. Incidentally found to have a 2 ?cm heterogeneous lesion in right thyroid lobe that will require outpatient thyroid US. Time Spent with Patient Time attestation: Total time managing care of this patient today __30__ minutes. Discharge coordination time: Less than 30 minutes Quality: Safe Use of Opioids Does Pt have an Active Cancer Diagnosis on the Problem List?: No Quality: Stroke Does the patient have a stroke diagnosis?: No Physical Exam Vital Signs: Vital Signs: Last Vital Signs Temp 97.0 F 09/13/22 12:00 Pulse 83 09/13/22 12:00 Resp 18 09/13/22 12:00 BP 131/61 09/13/22 12:00 Pulse Ox 95 09/13/22 12:00 O2 Del Method Room Air 09/13/22 12:00 BMI result Body Mass Index 38.6 Gen: in no acute distress HEENT: sclera anicteric, moist mucus membranes, no nystagmus Neck: supple Lungs: clear to auscultation bilaterally Heart: regular rate and rhythm, no murmurs Abd: soft, non-tender, non-distended Ext: no edema Skin: warm/well-perfused Neuro: alert and oriented x3, no focal weakness, no cerebellar signs Psych: appropriate affect DS: Data Data Completed and Pending Completed studies during hospitalization [Text1]: Laboratory Results WBC 7.6 X10*3/uL (4.8-10.8) 09/12/22 13:27 RBC 5.12 X10*6/uL (4.20-5.50) 09/12/22 13:27 Hgb 15.4 g/dl (12.0-16.0) 09/12/22 13:27 Hct 46.2 % (37.0-47.0) 09/12/22 13:27 MCV 90.2 fL (80.0-98.0) 09/12/22 13:27 MCH 30.1 pg (27.0-33.0) 09/12/22 13:27 MCHC 33.3 g/dl (31.0-35.0) 09/12/22 13:27 RDW 13.0 % (11.0-16.0) 09/12/22 13:27 Plt Count 272 X10*3/uL (160-400) 09/12/22 13:27 MPV 9.1 fL (9.4-12.3) L 09/12/22 13:27 Immature Gran % (Auto) 0.1 % (0.0-0.4) 09/12/22 13:27 Neut % (Auto) 58.8 % (45-73) 09/12/22 13:27 Lymph % (Auto) 31.8 % (20-40) 09/12/22 13: [place] % (Auto) 6.8 % (2-11) 09/12/22 13:27 Eos % (Auto) 1.8 % (0-4) 09/12/22 13:27 Baso % (Auto) 0.7 % (0-2) 09/12/22 13:27 Lymph # (Auto) 2.4 X10*3/uL (1.2-4.9) 09/12/22 13:27 [place] # (Auto) 0.5 X10*3/uL (0.1-1.2) 09/12/22 13: Eos # (Auto) 0.1 X10*3/uL (0.0-0.4) 09/12/22 13: Baso # (Auto) 0.1 X10*3/uL (0.0-0.2) 09/12/22 13: Abs Immat Gran (auto) 0.01 X10*3/uL (0.00-0.03) 09/12/22 13: Absolute Neuts (auto) 4.5 x10*3/uL (2.0-8.3) 09/12/22 13: Absolute Nucleated RBC 0.000 X10*3/uL (0.0-0.012) 09/12/22 13: Nucleated RBC % (auto) 0.0 /100WBC (0.0-0.2) 09/12/22 13: PT 11.2 SEC (10.0-13.1) 09/12/22 13: INR 1.0 (0.9-1.1) 09/12/22 13:26 D-Dimer High Sensitivty < 150 NG/ML 09/12/22 13:26 Sodium 141 mmol/L (135-145) 09/13/22 07:03 Potassium 4.3 mmol/L (3.3-5.1) 09/13/22 07:03 Chloride 109 mmol/L (96-108) H 09/13/22 07:03 Carbon Dioxide 27 mmol/L (22-29) 09/13/22 07:03 Anion Gap 9 (12-20) L 09/13/22 07:03 BUN 11 mg/dL (9-16) 09/13/22 07:03 Creatinine 0.66 mg/dL (0.5-1.4) 09/13/22 07:03 Estim Creat Clear Calc 126.8 09/13/22 07:03 Estimated GFR > 60 09/13/22 07:03 Random Glucose 98 mg/dL (60-115) 09/13/22 07:03 Estimat Average Glucose 111 mg/dL 09/12/22 13:26 Hemoglobin A1c % 5.5 % 09/12/22 13:26 Calcium 8.9 mg/dL (8.4-10.2) 09/13/22 07:03 Magnesium 1.9 mg/dL (1.6-2.6) 09/12/22 13:26 Total Bilirubin 0.3 mg/dL (0.0-1.0) 09/13/22 07:03 Direct Bilirubin < 0.2 mg/dL (0.0-0.5) 09/12/22 13:26 AST 17 U/L (5-31) 09/13/22 07:03 ALT 26 U/L (0-31) 09/13/22 07:03 Alkaline Phosphatase 102 U/L (39-117) 09/13/22 07:03 Troponin I High Sens < 3.5 ng/L (<3.5-17.0) 09/12/22 13:26 B-Natriuretic Peptide 12 pg/mL (<100) 09/12/22 13:26 Total Protein 5.7 g/dL (6.5-8.0) L 09/13/22 07:03 Albumin 3.4 g/dL (3.5-5.0) L 09/13/22 07:03 Triglycerides 114 mg/dL 09/12/22 22:43 Cholesterol 188 mg/dL 09/12/22 22:43 LDL Cholesterol, Calc 129 mg/dl 09/12/22 22:43 HDL Cholesterol 37 mg/dL 09/12/22 22:43 TSH 0.74 uIU/mL (0.32-4.0) 09/13/22 07:03 COVID-19 (MURRAY) Negative (Negative) 09/12/22 13:26 COVID-19 Clin Com See Note 09/12/22 13:26 Influenza Type A (EVELIO) Negative (Negative) 09/12/22 13:26 Influenza Type B (EVELIO) Negative (Negative) 09/12/22 13:26 Influenza A & B Note See Note 09/12/22 13:26 Impressions Chest X-Ray 09/12/22 14:20 IMPRESSION: No acute cardiopulmonary process. Head/Neck CTA 09/12/22 21:45 IMPRESSION: 1. No evidence of acute intracranial hemorrhage or edematous territorial infarction. 2. CTA of the head and neck without proximal occlusion or flow-limiting stenosis. 3. There is a 2 cm heterogeneous lesion in right thyroid lobe. Recommend further characterization with thyroid ultrasound. 4. Emphysema. Brain MRI 09/13/22 12:49 IMPRESSION: No mass lesion, acute infarction, or abnormal intracranial enhancement. Discharge Plan Discharge Patient Disposition: Home, Self-Care Discharge Diagnosis: dizziness/flushing Referrals: Nisreen Zuniga MD [Physician] - 1 Week Mike Valdovinos MD [Primary Care Provider] - 1 Week Discharge Medications: No Action No Known Home Meds Discharge Orders: Discharge Order (Routine); Ordered 09/13/22 Ordered By: Inocencia Massey Diet: Advance to usual diet Activity on Discharge: As tolerated Stand Alone Forms: Patient Portal Discharge page Care Plan Goals: diagnosis of possible neurologic condition Health Concerns: episodic dizziness/palpitations/blurry vision thyroid lesion Plan of Treatment: follow up with [facility] to schedule EEG [electroencephalogram]; avoid driving in the meanwhile Please follow up with your primary care doctor within 1 week. Return to the hospital if you experience recurrent or worsening symptoms. You will need a dedicated outpatient thyroid ultrasound to assess the 2 cm nodule in the right lobe of your thyroid gland. Assessment: See Discharge Summary. Discharge Date/Time: 09/13/22 16:58
== END 2022-09-13 16:58 | disposition home or self-care (01) ==
LOC: HO.ED 20:10 → HO.EDOVER 22:17 → HO.IMC 09-13 01:22
PROVIDERS: Physician Assistant; Admitting Provider Internal Medicine; Emergency Provider Emergency Medicine; PCP Internal Medicine; Visit Provider Family Medicine
DX: G40.909 Epilepsy, unspecified, not intractable, without status epilepticus (principal); R42 Dizziness and giddiness; R00.2 Palpitations; E07.89 Other specified disorders of thyroid; H55.00 Unspecified nystagmus; R06.02 Shortness of breath; Z20.822 Contact with and (suspected) exposure to COVID-19; F17.210 Nicotine dependence, cigarettes, uncomplicated; Z86.718 Personal history of other venous thrombosis and embolism
CPT/HCPCS: 36415; 70496; 70498; 70553; 71045; 80048; 80053; 80061; 80076; 83036; 83735; 83880; 84443; 84484; 85025; 85379; 85610; 87502; 87635; 93005; 99222; 99285; A9585; Q9967